=== PATIENT | male | born 1980 ===

== ENCOUNTER 2017-08-18 10:27 | Emergency (ER) | payer MEDICAID ==
[2017-08-18 10:40] VITALS: BP 140/86; PULSE 67; RESP 18; TEMP 98.2; O2SAT 99
--- NOTE | 2017-08-18 11:21 | ED PDOC ---
HPI: CCC, URI, Sore Throat Time Seen by Provider: 08/18/17 11:05 Chief Complaint (Nursing): Flu-like Symptoms Chief Complaint (Provider): Cough History Per: Patient History/Exam Limitations: no limitations Have you had recent travel within the past 21 days to any of the following countries: [place], [place], [place] or [place]?: No Onset/Duration Of Symptoms: Days (Wednesday) Current Symptoms Are (Timing): Still Present Additional Complaint(s): Cough, nasal congestion, body aches. Dark phlegm. No weakness, diarrhea, nausea, vomit, dyspnea. Has chest pain on cough. No back pain. No abd pain. No fever. Took something on Wednesday. 1 dose of amox today. No headaches or dizziness. Past Medical History Reviewed: Nursing Documentation, Vital Signs Vital Signs: Last Vital Signs Temp 98.2 F 08/18/17 10:38 Pulse 67 08/18/17 10:38 Resp 18 08/18/17 10:38 BP 140/86 08/18/17 10:38 Pulse Ox 99 08/18/17 10:38 - Medical History PMH: No Chronic Diseases - Surgical History Surgical History: No Surg Hx - Family History Family History: States: Unknown Family Hx - Living Arrangements Living Arrangements: With Family - Social History Current smoker - smoking cessation education provided: No Alcohol: None Drugs: Denies - Home Medications Home Medications: Ambulatory Orders Medication Instructions Recorded Benzonatate [Tessalon Perles] 100 mg PO BID PRN 5 Days sgl 08/18/17 Ibuprofen [Motrin] 600 mg PO TID 7 Days tab 08/18/17 - Allergies Allergies/Adverse Reactions: Allergies Allergy/AdvReac Type Severity Reaction Status Date / Time No Known Allergies Allergy Verified 08/18/17 10:38 Review of Systems Constitutional: Negative for: Fever, Weakness ENT: Positive for: Nose Pain, Nose Discharge, Nose Congestion Cardiovascular: Positive for: Chest Pain. Negative for: Palpitations, Edema, Light Headedness Respiratory: Positive for: Cough, Sputum. Negative for: SOB with Exertion Gastrointestinal: Negative for: Nausea, Vomiting, Abdominal Pain, Diarrhea Musculoskeletal: Negative for: Neck Pain Skin: Negative for: Rash Neurological: Negative for: Weakness, Headache Physical Exam - Reviewed Nursing Documentation Reviewed: Yes Vital Signs Reviewed: Yes - Physical Exam Appears: Positive for: Non-toxic, No Acute Distress Head Exam: Positive for: ATRAUMATIC, NORMAL INSPECTION, NORMOCEPHALIC Skin: Positive for: Normal Color, Warm, DRY Eye Exam: Positive for: EOMI, Normal appearance, PERRL ENT: Positive for: Nasal Congestion. Negative for: Tonsillar Exudate Neck: Positive for: Normal, Painless ROM, Supple Cardiovascular/Chest: Positive for: Regular Rate, Rhythm Respiratory: Positive for: CNT, Normal Breath Sounds Gastrointestinal/Abdominal: Positive for: Normal Exam, Bowel Sounds, Soft. Negative for: Tenderness Back: Positive for: Normal Inspection. Negative for: L CVA Tenderness, R CVA Tenderness Extremity: Positive for: Normal ROM. Negative for: Tenderness, Pedal Edema Neurologic/Psych: Positive for: Alert, Oriented - ECG O2 Sat by Pulse Oximetry: 99 Pulse Ox Interpretation: Normal - Progress ED Course And Treament: 1123: Stable. AAOx3. Pain free. Fu with pcp. Disposition - Clinical Impression Clinical Impression: URI (upper respiratory infection) - Patient ED Disposition Is Patient to be Admitted: No Counseled Patient/Family Regarding: Diagnosis, Need For Followup, Rx Given - Disposition Referrals: [facility] [Outside] - 08/20/17 Disposition: Routine/Home Disposition Time: 11:25 Condition: STABLE Additional Instructions: Return if not better in 3 days. Do not take amoxicillin. Prescriptions: Benzonatate [Tessalon Perles] 100 mg PO BID PRN 5 Days sgl PRN Reason: Cough Ibuprofen [Motrin] 600 mg PO TID 7 Days tab Instructions: Upper Respiratory Infection (ED) Forms: [facility] ([place]), [facility] ED School/Work Excuse
--- NOTE | 2017-08-19 09:14 | CARD ---
APPROVED REPORT EKG Measurement Heart [id number] <Conclusion> Normal sinus rhythm Normal ECG
== END 2017-08-18 11:43 | disposition home or self-care (01) ==
LOC: H.ER 10:27
DX: J06.9 Acute upper respiratory infection, unspecified (principal)

== ENCOUNTER 2017-09-24 08:54 | Emergency (ER) | payer MEDICAID ==
[2017-09-24 09:26] VITALS: BP 136/84; PULSE 70; RESP 19; TEMP 98.2; O2SAT 100
--- NOTE | 2017-09-24 09:52 | ED PDOC ---
Upper Extremity Pain/Injury Time Seen by Provider: 09/24/17 09:04 Chief Complaint (Nursing): Upper Extremity Problem/Injury History Per: Patient (37 yo male s/p slip and fall. landed on left elbow. Has pain and normal motion.) History/Exam Limitations: no limitations Past Medical History Reviewed: Historical Data, Nursing Documentation, Vital Signs Vital Signs: Last Vital Signs Temp 98.2 F 09/24/17 09:23 Pulse 70 09/24/17 09:23 Resp 19 09/24/17 09:23 BP 136/84 09/24/17 09:23 Pulse Ox 100 09/24/17 09:23 - Medical History PMH: No Chronic Diseases - Surgical History Surgical History: Appendectomy - Family History Family History: States: Unknown Family Hx - Living Arrangements Living Arrangements: With Family - Home Medications Home Medications: Ambulatory Orders Medication Instructions Recorded Benzonatate [Tessalon Perles] 100 mg PO BID PRN 5 Days sgl 08/18/17 Ibuprofen [Motrin] 600 mg PO TID 7 Days tab 08/18/17 - Allergies Allergies/Adverse Reactions: Allergies Allergy/AdvReac Type Severity Reaction Status Date / Time No Known Allergies Allergy Verified 08/18/17 10:38 Review of Systems ROS Statement: Except As Marked, All Systems Reviewed And Found Negative Constitutional: Negative for: Fever Musculoskeletal: Positive for: Other (left medial elbow pain) Skin: Negative for: Lesions Physical Exam - Reviewed Nursing Documentation Reviewed: Yes Vital Signs Reviewed: Yes - Physical Exam Appears: Positive for: Well, Non-toxic, No Acute Distress Head Exam: Positive for: ATRAUMATIC, NORMAL INSPECTION, NORMOCEPHALIC Skin: Positive for: Normal Color Neck: Positive for: Normal Back: Positive for: Normal Inspection Extremity: Positive for: Normal ROM, Tenderness (medial epicondyle area with mild induraiton) - ECG O2 Sat by Pulse Oximetry: 100 Disposition - Clinical Impression Clinical Impression: Elbow injury - Patient ED Disposition Is Patient to be Admitted: No Doctor Will See Patient In The: Office Counseled Patient/Family Regarding: Diagnosis, Need For Followup - Disposition Referrals: FAMILY PROVIDER,NO [Primary Care Provider] - Disposition: Routine/Home Disposition Time: 09:35 Condition: STABLE Additional Instructions: Since you refused x-ray, please followup with your doctor in 2-3 days if pain does not resolve. Forms: [facility] ([place]), [facility] ED School/Work Excuse - POA Present On Arrival: Falls Or Trauma
== END 2017-09-24 10:13 | disposition home or self-care (01) ==
LOC: H.ER 08:54 → SUPCPDRO 08:54 → H.ER 10:13
DX: M25.522 Pain in left elbow (principal)